=== PATIENT | female | born 1980 | race Caucasian/White ===

== ENCOUNTER 2020-08-16 10:31 | Outpatient (CLI) | payer OTHER, SELFPAY ==
--- NOTE | ~2020-08-16 | MR_ITS ---
EXAMINATION: MR knee LT wo con DATE: 08/16/2020 11:25 INDICATION: Left knee arthritis presenting with 3 weeks of generalized left knee pain. TECHNIQUE: Magnetic resonance imaging (MRI) of the left knee was performed without intravenous contra st. Sequences included coronal PD-weighted FSE, coronal PD-weighted FS FSE, sagittal T2-weighted FSE , sagittal PD-weighted FS FSE and axial PD weighted fat saturated FSE. COMPARISON: None. FINDINGS: Medial compartment: Medial meniscus is normal. Partial-thickness cartilage loss with chondral surface regularity along th e anterior weightbearing medial femoral condyle and anterior half of the medial tibial plateau. No de generative subarticular changes. Lateral compartment: Lateral meniscus is normal. Articular cartilage is normal. Patellofemoral compartment: Partial-thickness cartilage loss and chondral surface regularity along the caudal half of the patella r apical ridge and medial facet. Deep chondral fissuring with underlying subarticular edema at the tr ochlear groove and inferomedial aspect of the medial trochlea. Ligaments and tendons: Anterior and posterior cruciate ligaments are normal. The medial collateral ligament and fibular jaymie ateral ligament complex are normal. The extensor mechanism is normal. The visualized medial and later al hamstring tendons as well as the iliotibial band are normal. Fluid: There is edema and/or synovitis at the margins of the suprapatellar pouch and along the posterior mar gin of Hoffa's fat pad with physiologic amount of fluid in the joint space. No loose osteochondral kristina dies identified. Large multilobulated Malin's cyst which extends greater than 12 cm craniocaudally be tween the semimembranosus and medial head of the gastrocnemius and 3.7 x 1.6 cm in maximal orthogonal dimensions. There is likely rupture of the Malin's cyst with small amount of nonloculated fluid trac mayela into the soft tissues surrounding the inferior aspect of the cyst. Osseous/other: Aside from the subarticular edema at the trochlear groove and medial trochlea there is normal marrow signal. No fracture or pathologic marrow replacing process. IMPRESSION: 1. 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 2. Likely partially ruptured large multilobulated Malin's cyst at the posterior medial aspect of the knee. Reviewed, dictated and finalized at location B. IMPRESSION: 1. Mild tricompartmental osteoarthritis with high-grade trochlear chondromalaci a and with regions of moderate grade chondromalacia at the patella and in the m edial and lateral compartments. 2. Likely partially ruptured large multilobulated Malin's cyst at the posterior medial aspect of the knee.
== END 2020-08-16 10:32 | disposition home or self-care (01) ==
PROVIDERS: Referring Provider Orthopaedic Surgery
DX: M17.10 Unilateral primary osteoarthritis, unspecified knee (principal); M22.42 Chondromalacia patellae, left knee
CPT/HCPCS: 73721

== ENCOUNTER 2021-03-18 17:04 | Emergency (ER) | payer OTHER, SELFPAY ==
--- NOTE | ~2021-03-18 | CT_ITS ---
EXAMINATION: CT abdomen pelvis w con EXAM DATE: 03/18/2021 20:14 INDICATION: Right lower quadrant pain. TECHNIQUE: Spiral CT of the abdomen and pelvis was performed following intravenous injection of 100 m L Omnipaque 350. Axial, coronal and sagittal images of the abdomen and pelvis were reviewed. The do se-length product (DLP) for this examination was 485.51 mGy-cm. The exposure was tailored according to patient size (auto mA exposure control), and iterative reconstruction (ASIR) was used as additiona l dose reduction technique. There is no prior study for comparison. FINDINGS: The liver, spleen, adrenal glands and pancreas are unremarkable. Gallbladder is unremarkab le. No biliary obstruction. Portal and splenic veins are patent. Kidneys enhance symmetrically. T here is no hydronephrosis. The uterus is anteverted and morphologically normal. The bladder is un remarkable. There is no retroperitoneal or pelvic lymphadenopathy. The appendix is not positively visualized. There is no pericecal inflammatory change to suggest appe ndicitis. The stomach and small bowel are unremarkable. There is expected amount of colonic stool. No free intraperitoneal gas. The heart is normal in size. There are no pericardial or pleural e ffusions. The lung bases are unremarkable. Mild thoracolumbar levoscoliosis. There are no osteoblas tic or osteolytic lesions identified. IMPRESSION: 1. No acute intra-abdominal findings. Reviewed, dictated and finalized at location A.
[2021-03-18 17:10] VITALS: BP 110/72; PULSE 80; RESP 18; TEMP 36.3; O2SAT 100
[2021-03-18 17:22] LABS: Basophils Absolute Auto 0.1 K/mm3 (0.0-0.1); Basophils Percent Auto 0.7 % (0.2-1.2); Eosinophils Absolute Auto 0.4 K/mm3 (0-0.3); Eosinophils Percent Auto 3.2 % (0-4.4); Hematocrit 47.2 % (37.0-47.0); Hemoglobin 14.9 g/dL (12.0-15.0); Immature Granulocyte Absolute 0.05 K/mm3 (0.00-0.031); Immature Granulocyte Percent A 0.5 % (0-0.5); Lymphocytes Percent Auto 22.6 % (18.3-44.2); Mean Corpuscular HGB Conc 31.6 g/dl (32-36); Mean Corpuscular Hemoglobin 28.2 pg (26-34); Mean Corpuscular Volume 89.4 fl (80-100); Mean Platelet Volume 10.1 fl (7.4-10.4); Monocytes Absolute Auto 0.7 K/mm3 (0.1-0.6); Monocytes Percent Auto 6.3 % (2.6-8.5); Neutrophils Absolute Auto 7.4 K/mm3 (1.3-6.7); Neutrophils Percent Auto 66.7 % (45.5-73.1); Platelet Count Result 444 k/mm3 (150-375); Red Blood Count 5.28 M/mm3 (4.2-5.4); Red Cell Distribution Width 12.8 % (11.5-14.5)
[2021-03-18 17:28] LABS: Add Urine Microscopic? NO; Appearance Urine Clear (Clear); Bilirubin Urine Negative (Negative); Blood Urine Negative (Negative); Color Urine Yellow (Yellow); Glucose Urine UA Negative (Negative); Ketones Urine Negative (Negative); Leukocyte Esterase Ur Negative LEU/UL (Negative); Nitrate Urine Negative (Negative); Protein Urine Negative (Negative); Specific Grav Ur 1.018 (1.001-1.035); Urobilinogen Urine Negative mg/dL (<2.0)
[2021-03-18 17:33] LABS: Alanine Aminotransferase 19 U/L (4-35); Albumin Level 4.5 g/dL (3.5-5.1); Alkaline Phosphatase 63 U/L (38-126); Anion Gap 4 mmol/L (8-16); Aspartate Amino Transferase 36 U/L (14-36); Bilirubin,Total 0.3 mg/dL (0.2-1.3); Blood Urea Nitrogen 21 mg/dL (7-17); Calcium 9.8 mg/dL (8.4-10.2); Carbon Dioxide 34 mmol/L (22-30); Chloride 101 mmol/L (98-107); Estimated CRCL calculation 77 ml/min; Estimated Glomerular Filt Rate > 60; Glucose 105 mg/dL (65-105); Lipase 32 U/L (23-300); Potassium 4.5 mmol/L (3.4-5.0); Sodium 139 mmol/L (137-145)
[2021-03-18] MEDS: ONDANSETRON INJ 4 MG/2 ML VIAL IV PUSH (19:40)
[2021-03-18] MEDS: SODIUM CHLORIDE 0.9% IV 1,000 ML 999 ML IV CONT (19:40)
[2021-03-18 19:44] VITALS: BP 116/65; PULSE 79; RESP 14; O2SAT 99
--- NOTE | 2021-03-18 19:44 | ED.GENADULT ---
HPI - General Adult General Chief complaint: Abdominal Pain Stated complaint: ABD PAIN X1 HOUR Time Seen by Provider: 03/18/21 19:00 History of Present Illness HPI narrative: Patient 40-year-old female presents the emergency department with chief complaint of abdominal pain. Patient reports that the pain began just after she had had a bowel movement reports the pain is more in the periumbilical area and radiates to her back. Patient reports that no prior history of surgeries to the abdomen. Patient denies fever denies chills reports that her bowel movement was normal denies dysuria versus her last period was in the last month that was normal Related Data Home Medications Medication Instructions Recorded Confirmed meloxicam 7.5 mg tablet 7.5 mg PO DAILY 09/09/20 09/09/20 nortriptyline 10 mg capsule 10 mg PO DAILY 09/09/20 09/09/20 Allergies Allergy/AdvReac Type Severity Reaction Status Date / Time brompheniramine Allergy Unknown RASH Verified 09/09/20 15:39 dextromethorphan Allergy Unknown RASH Verified 09/09/20 15:39 [email or web address] Allergy Unknown RASH Verified 09/09/20 15:39 phenylephrine Allergy Unknown RASH Verified 09/09/20 15:39 Review of Systems Review of Systems: Narrative: A 10 system review of systems was completed on the patient and is negative except for what is stated in the HPI. Nursing and ancillary documentation was reviewed. PMFSH Past Medical History Medical History Anxiety Depression Elevated lipids Migraines Vaginal delivery x 2 Vertigo Surgical History Surgical History History of hernia surgery History of left oophorectomy History of tubal ligation Family History Family History Grandparent Carcinoma of colon Acute myocardial infarction Breast cancer Social History Social History Smoking status: Former smoker Exam Narrative: Exam Narrative: GENERAL: Well-appearing, well-nourished, and in no acute distress. HEAD: Normocephalic, atraumatic. EYES: PERRLA and EOMI. ENT: Nares clear, no rhinorrhea or epistaxis. Mucous membranes moist. NECK: Supple. CHEST: Clear to auscultation. No respiratory distress. HEART: Regular rate and rhythm. No murmur heard. Normal peripheral pulses. ABDOMEN: Soft, nontender, nondistended, normal active bowel sounds. EXTREMITIES: Normal range of motion. No edema. SKIN: Warm, dry, no rash. NEURO: No focal deficits. Alert and oriented x3. PSYCH: Normal mood and affect. Course Course Emergency Course: CT scan of the abdomen pelvis showed no evidence of acute abnormality Vital Signs Vital signs: Vital Signs Temperature 36.3 C L 03/18/21 17:10 Pulse Rate 80 03/18/21 17:10 Respiratory Rate 18 03/18/21 17:10 Blood Pressure 110/72 03/18/21 17:10 Pulse Oximetry 100 03/18/21 17:10 Temperature 36.3 C L 03/18/21 17:10 Pulse Rate 79 03/18/21 19:44 Respiratory Rate 14 03/18/21 19:44 Blood Pressure 116/65 03/18/21 19:44 Pulse Oximetry 99 03/18/21 19:44 Medical Decision Making Vital Signs Vital Signs: Vital Signs Temperature 36.3 C L 03/18/21 17:10 Pulse Rate 80 03/18/21 17:10 Respiratory Rate 18 03/18/21 17:10 Blood Pressure 110/72 03/18/21 17:10 Pulse Oximetry 100 03/18/21 17:10 Temperature 36.3 C L 03/18/21 17:10 Pulse Rate 79 03/18/21 19:44 Respiratory Rate 14 03/18/21 19:44 Blood Pressure 116/65 03/18/21 19:44 Pulse Oximetry 99 03/18/21 19:44 Lab Data Result diagrams: 03/18/21 17:14 03/18/21 17:14 Labs: Lab Results 03/18/21 03/18/21 03/18/21 Range/Units 17:14 17:14 17:20 WBC 11.0 H (4.5-10.0) K/mm3 RBC 5.28 (4.2-5.4) M/mm3 Hgb 14.9 (12.0-15.0) g/dL Hct 47.2 H (37.0-47.0
== END 2021-03-18 21:09 | disposition home or self-care (01) ==
PROVIDERS: Emergency Medicine; Emergency Provider Emergency Medicine; PCP Nurse Practitioner
DX: R10.84 Generalized abdominal pain (principal); F41.9 Anxiety disorder, unspecified; F32.9 Major depressive disorder, single episode, unspecified; Z87.891 Personal history of nicotine dependence
CPT/HCPCS: 36415; 74177; 80053; 81003; 81025; 83690; 85025; 96361; 96374; 99284; J2405; J7030; Q9967

== ENCOUNTER → 2023-01-25 09:54 | Outpatient (CLI) | payer OTHER, SELFPAY ==
--- NOTE | ~2023-01-25 | US_ITS ---
Pelvic ultrasound. Clinical History: Ovarian cyst Technique: Realtime transabdominal and transvaginal scanning of the pelvis was performed. Color flow Doppler and Doppler spectral analysis were performed. Findings: The uterus is anteverted. The endometrial stripe has a thickness of 10 mm. No focal mass i s identified. The right ovary measures 2.5 x 3.3 x 2.9 cm. No significant right ovarian or adnexal mass is seen. The left ovary measures 4.3 x 2.8 x 5.2 cm. Left ovarian cyst measures 4.0 cm in maximum diameter.. Vascular flow present in both ovaries on Doppler spectral analysis. There is no evidence of free fluid in the cul de sac. Impression: 4 cm simple left ovarian cyst. Reviewed, dictated and finalized at [facility]. Impression: 4 cm simple left ovarian cyst.
== END ==
PROVIDERS: PCP Registered Nurse; Visit Provider Registered Nurse
DX: N83.202 Unspecified ovarian cyst, left side (principal)
CPT/HCPCS: 76830; 76856

== ENCOUNTER → 2023-04-04 10:27 | Outpatient (CLI) | payer OTHER, SELFPAY ==
--- NOTE | ~2023-04-04 | MM_ITS ---
EXAMINATION: MM screening kelley BI w jami HISTORY: Screening mammogram TECHNIQUE: Craniocaudal and mediolateral oblique 3-D tomosynthesis images were obtained and synthetic 2-D images were generated. CAD analysis was submitted and interpreted. COMPARISON: No prior mammogram is available for comparison at this institution. BREAST PARENCHYMAL COMPOSITION: There are scattered areas of fibroglandular density. FINDINGS: There is no evidence of suspicious mass, calcification, or architectural distortion to sugg est malignancy in either breast. There has been no suspicious interval change. IMPRESSION: 1. No mammographic evidence of malignancy. 2. Recommend routine screening mammography in one year. BI-RADS Category 1: Negative Reviewed, dictated and finalized at location A.
== END ==
PROVIDERS: PCP Internal Medicine; Visit Provider Registered Nurse
DX: Z12.31 Encounter for screening mammogram for malignant neoplasm of breast (principal)
CPT/HCPCS: 77063; 77067

== ENCOUNTER 2023-06-29 08:58 | Outpatient (CLI) | payer OTHER, SELFPAY ==
--- NOTE | ~2023-06-29 | US_ITS ---
EXAMINATION: US pelvic complete w TV DATE: 06/29/2023 09:28 INDICATION: Follow-up left ovarian cyst Comparison:Ultrasound dated 01/25/2023 TECHNIQUE: Multiple transabdominal and endovaginal sonographic images of the pelvis performed. FINDINGS: The uterus measures 9.6 x 4.7 x 4.4 cm. There is a small uterine fibroid measuring 9 mm. Th e endometrial complex measures 9 mm. The right ovary measures 3.3 x 2.6 x 2.5 cm and the left ovary measures 2.3 x 1.7 x 1.2 cm. There is a left ovarian cyst measuring 2.1 x 1.3 x 8 cm compared with 3.7 x 2.4 x 4 cm from prior study. There are small follicles in each ovary. Normal doppler signal in both ovaries. There is no free fluid in the pelvis. There are no abnormal masses seen on either side. IMPRESSION: 1. Significantly decreased size of left ovarian cyst measuring 2.1 cm on current study. Reviewed, dictated and finalized at location L. IMPRESSION: 1. Significantly decreased size of left ovarian cyst measuring 2.1 cm on curren t study.
== END 2023-06-29 08:59 | disposition home or self-care (01) ==
PROVIDERS: PCP Internal Medicine; Visit Provider Registered Nurse
DX: N83.202 Unspecified ovarian cyst, left side (principal)
CPT/HCPCS: 76830; 76856

== ENCOUNTER 2023-07-19 09:10 | Outpatient (CLI) | payer OTHER, SELFPAY ==
[2023-07-25 08:53] LABS: Testosterone Free 1.5 pg/mL (0.1-6.4); Testosterone Total 12 ng/dL (2-45)
== END 2023-07-19 09:11 | disposition home or self-care (01) ==
PROVIDERS: PCP Internal Medicine; Visit Provider Registered Nurse
DX: R68.82 Decreased libido (principal)
CPT/HCPCS: 36415; 84402; 84403

== ENCOUNTER 2024-05-13 11:57 | Emergency (ER) | payer SELFPAY ==
--- NOTE | ~2024-05-13 | CT_ITS ---
CT abdomen pelvis w con Ordering provider: Montana Harley MD History: 43 years Female with . Right flank, right lower quadrant pain . Comparison: None. Technique: CT abdomen and pelvis with IV and without oral contrast. Automated exposure control and it erative reconstruction technique were employed. The dose-length product was 560.29 mGy-cm. 100 mL of Omnipaque 350 was given IV. Findings: VISUALIZED LOWER CHEST: Dependent atelectatic changes. UPPER ABDOMINAL ORGANS: Liver: Normal. Gallbladder: Normal. Spleen: Normal. Stomach/duodenum: Normal. Pancreas: Normal. Adrenals: Normal. Kidneys: Normal. PELVIC ORGANS: The bladder is normal. Uterus: Hypodensity in the anterior wall with fluid and soft t issue density in the endometrial cavity area measuring 1.6 cm. Evaluation for advised.. Rig ht ovarian cyst measuring 3.3 x 4.2 cm which may be a corpus luteum. BOWEL AND MESENTERY: Colon: No evidence of diverticulitis. Fecal material is loaded in the colon no evidence of appendicit is. Small Bowel: Normal. No obstruction. Peritoneum/mesentery: No free air or free fluid. No mesenteric lymphadenopathy. RETROPERITONEUM: Normal aorta. No retroperitoneal lymphadenopathy. MUSCULOSKELETAL: Superficial soft tissues: The superficial soft tissues are normal. Bones: Normal spine. IMPRESSION: 1. Hypodensity in the anterior wall with fluid and soft tissue density in the endometrial cavity are a measuring 1.6 cm. Evaluation for advised.. 2. Right ovarian cyst measuring 3.3 x 4.2 cm which may be a corpus luteum. 3. No evidence of appendicitis, diverticulitis or intestinal obstruction. Reviewed, dictated and finalized at location A. IMPRESSION: 1. Hypodensity in the anterior wall with fluid and soft tissue density in the endometrial cavity area measuring 1.6 cm. Evaluation for advised.. 2. Right ovarian cyst measuring 3.3 x 4.2 cm which may be a corpus luteum. 3. No evidence of appendicitis, diverticulitis or intestinal obstruction.
[2024-05-13 12:03] VITALS: BP 114/59; PULSE 92; RESP 16; TEMP 36.4; O2SAT 100
[2024-05-13 13:04] VITALS: BP 121/64; PULSE 89; RESP 17; O2SAT 100
[2024-05-13 13:18] LABS: Appearance Urine Clear (Clear); Bilirubin Urine Negative (Negative); Blood Urine Negative (Negative); Color Urine Yellow (Yellow); Glucose Urine UA Negative (Negative); Ketones Urine Negative (Negative); Leukocyte Esterase Ur Negative LEU/UL (Negative); Nitrate Urine Negative (Negative); Protein Urine Negative (Negative); Specific Grav Ur 1.016 (1.001-1.035); Urobilinogen Urine 0.2 mg/dL (<2.0); pH Urine 5.5 (5.0-9.0)
[2024-05-13 13:24] LABS: Add Urine Microscopic? NO
--- NOTE | 2024-05-13 14:09 | ED.ABDPAIN ---
HPI - Abdominal Pain General Chief Complaint: Abdominal Pain Stated Complaint: R flank pain Time Seen by Provider: 05/13/24 13:47 Source: patient Mode of arrival: EMS Limitations: no limitations History of Present Illness HPI narrative: 43 YEARS OLD WHITE FEMALE CAME TO THE EMERGENCY ROOM BY AMBULANCE BECAUSE OF PAIN ON THE RIGHT FLANK AREA GOING ALL WAY UP TO THE RIGHT BACK ASSOCIATED WITH NAUSEA. SHE DENIES ANY FEVER, CHILLS, VOMITING, VAGINAL BLEEDING OR DISCHARGE OR URINARY SYMPTOMS. PATIENT DENIED ANY HISTORY OF ABDOMINAL SURGERY. HISTORY OF ARTHRITIS, MIGRAINE HEADACHE, ANXIETY AND DEPRESSION. Related Data Allergies Allergy/AdvReac Type Severity Reaction Status Date / Time brompheniramine Allergy Rash Verified 05/13/24 14:33 [From Dimetapp (brompheniramine-PPA)] [email or web address] [From Robitussin] Allergy Rash Verified 05/13/24 14:33 phenylpropanolamine Allergy Rash Verified 05/13/24 14:33 [From Dimetapp (brompheniramine-PPA)] Review of Systems Review of Systems: All systems reviewed & are unremarkable except as noted in HPI and below Exam Narrative: GENERAL APPEARANCE: WELL-DEVELOPED, WELL-NOURISHED SKIN: NORMAL COLOR HEAD: NORMOCEPHALIC, NONTRAUMATIC EYES: CLEAR CONJUNCTIVA ENT: OROPHARYNX NORMAL, EARS NORMAL, NOSE NORMAL NECK: SUPPLE, NONTENDER CHEST AND RESPIRATORY: AIRWAY PATENT, NO RESPIRATORY DISTRESS, NO ACCESSORY MUSCLE USE HEART: REGULAR RATE/RHYTHM ABDOMEN: SOFT, MILD TENDERNESS RIGHT FLANK , NO GUARDING OR REBOUND,, NO ORGANOMEGALY, QUIET BOWEL SOUNDS VASCULAR: NORMAL PERIPHERAL PULSES, NORMAL CAPILLARY REFILL. MUSCULOSKELETAL: NORMAL RANGE OF MOTION, NONTENDER BACK NEUROLOGIC: ALERT AND ORIENTED ?3, PATTERNMAKER BENCH IS NORMAL TESTED, NO GROSS MOTOR DEFICIT Course Vital Signs Vital signs: Vital Signs Temperature 36.4 C 05/13/24 12:03 Pulse Rate 92 05/13/24 12:03 Respiratory Rate 16 05/13/24 12:03 Blood Pressure 114/59 L 05/13/24 12:03 Pulse Oximetry 100 05/13/24 12:03 Temperature 36.8 C 05/13/24 16:25 Pulse Rate 86 05/13/24 16:25 Respiratory Rate 14 05/13/24 16:25 Blood Pressure 116/67 05/13/24 16:25 Pulse Oximetry 99 05/13/24 16:25 Oxygen Delivery Room Air 05/13/24 13:04 MDM - Abdominal Pain MDM Narrative Medical decision making narrative: Differential diagnosis of right flank pain include musculoskeletal, kidney infection, kidney stone, constipation, colitis, diverticulitis Laboratory studies obtained on the patient showed WBC of 10.1 platelet of 394, urinalysis within normal limit, CT abdomen and pelvis showed nonspecific findings including a right ovarian cyst. Urine cyst and serum test came back negative. Patient feeling much better, asymptomatic at this time. The planned discharge patient with diagnosis of flank pain, to follow-up with OBGYN for intraultrin abnormality. Patient was advised to take Tylenol, ibuprofen as needed and follow-up with OBGYN within 5 days Differential Diagnosis Differential diagnosis: Likely other (As above) Medical Records Attestation: I reviewed the patient's medical records. Lab Data Attestation: I reviewed the patient's lab results. 05/13/24 14:31 05/13/24 14:31 Labs: Lab Results 05/13/24 05/13/24 Range/Units 13:10 14:31 WBC 10.1 H (4.5-10.0) K/mm3 RBC 4.45 (4.2-5.4) M/mm3 Hgb 12.9 (12.0-15.0) g/dL Hct 39.4 (37.0-47.0) % MCV 88.5 (80-100) fl MCH 29.0 (26-34) pg MCHC 32.7 (32-36) g/dl RDW 12.4 (11.5-14.5) % Plt Count 394 H (150-375) k/mm3 MPV 9.8 (7.4-10.4) fl Immature Gran % (Auto) 0.2 (0-0.5) % Neut % (Auto) 8
[2024-05-13] MEDS: Please add drug allergy info to patient profile. 1 EACH XX (14:20)
[2024-05-13] MEDS: SODIUM CHLORIDE 0.9% IV 1,000 ML 999 ML IV CONT (14:26)
[2024-05-13 14:38] LABS: Basophils Absolute Auto 0.1 K/mm3 (0.0-0.1); Basophils Percent Auto 0.7 % (0.2-1.2); Eosinophils Absolute Auto 0.1 K/mm3 (0-0.3); Eosinophils Percent Auto 0.9 % (0-4.4); Hematocrit 39.4 % (37.0-47.0); Hemoglobin 12.9 g/dL (12.0-15.0); Immature Granulocyte Absolute 0.02 K/mm3 (0.00-0.031); Immature Granulocyte Percent A 0.2 % (0-0.5); Lymphocytes Absolute Auto 1.32 K/mm3 (0.9-3.2); Mean Corpuscular HGB Conc 32.7 g/dl (32-36); Mean Corpuscular Volume 88.5 fl (80-100); Mean Platelet Volume 9.8 fl (7.4-10.4); Monocytes Absolute Auto 0.4 K/mm3 (0.1-0.6); Neutrophils Absolute Auto 8.2 K/mm3 (1.3-6.7); Neutrophils Percent Auto 81.2 % (45.5-73.1); Platelet Count Result 394 k/mm3 (150-375); Red Blood Count 4.45 M/mm3 (4.2-5.4); Red Cell Distribution Width 12.4 % (11.5-14.5); White Blood Count 10.1 K/mm3 (4.5-10.0)
[2024-05-13 14:57] LABS: Alanine Aminotransferase 33 U/L (6-35); Albumin Level 3.8 g/dL (3.5-5.1); Alkaline Phosphatase 56 U/L (38-126); Anion Gap 7 mmol/L (4-12); Aspartate Amino Transferase 31 U/L (14-36); Bilirubin,Total 0.8 mg/dL (0.2-1.3); Blood Urea Nitrogen 15 mg/dL (7-17); Calcium 8.8 mg/dL (8.4-10.2); Carbon Dioxide 26 mmol/L (22-30); Chloride 105 mmol/L (98-107); Estimated CRCL calculation 83 ml/min; Estimated Glomerular Filt Rate > 60; Glucose 92 mg/dL (65-110); Lipase 25 U/L (23-300); Potassium 3.8 mmol/L (3.4-5.0); Sodium 138 mmol/L (137-145)
[2024-05-13 16:25] VITALS: BP 116/67; PULSE 86; RESP 14; TEMP 36.8; O2SAT 99
[2024-05-13 17:33] LABS: Beta HCG Quantitative < 2.39 mIU/ML
== END 2024-05-13 17:54 | disposition home or self-care (01) ==
PROVIDERS: Emergency Provider Emergency Medicine; PCP Internal Medicine
DX: R10.9 Unspecified abdominal pain (principal); N83.201 Unspecified ovarian cyst, right side
CPT/HCPCS: 36415; 74177; 80053; 81003; 81025; 83690; 84702; 85025; 96360; 99284; J7030; Q9967

== ENCOUNTER 2024-06-06 15:34 | Outpatient (CLI) | payer OTHER, SELFPAY ==
--- NOTE | ~2024-06-06 | US_ITS ---
EXAMINATION: US pelvic complete w TV DATE: 06/06/2024 16:48 INDICATION: Ovarian cyst and uterine cyst. TECHNIQUE: Multiple transabdominal and endovaginal sonographic images of the pelvis were obtained. COMPARISON: Ultrasound dated 06/29/[address] dated 05/13/2024. FINDINGS: The uterus measures 10.4 x 5.3 x 6.3 cm. The endometrial complex measures 9 mm in thickness. Within the endometrial complex is a 1.7 x 1.6 x 0.9 cm mass which appears evident is enhancing mass surround ed by the lower attenuation endometrial complex. There is a 1.3 x 1.2 x 1.1 cm mass with shadowing at the anterior uterine wall which appears relatively hypoenhancing on the prior CT likely representing a uterine fibroid. This is increased in size from 9 mm in maximal diameter at the time of the prior ultrasound. The right ovary measures 4.7 x 4.4 x 3.4 cm. 3.4 cm anechoic right ovarian cyst. Arterial and venous waveforms identified in the right ovary on color Doppler. The left ovary is not visualize d. There is no free fluid in the pelvis. IMPRESSION: 1. Interval increase in size of a now 1.3 cm likely fibroid in the anterior uterine wall. 2. 1.7 x 1.6 x 0.9 cm mass within the endometrial complex which could represent an endometrial polyp were submucosal fibroid. Consider hysteroscopy for further evaluation. 3. Simple appearing 3.4 cm right ovarian cyst. Reviewed, dictated and finalized at location A. IMPRESSION: 1. Interval increase in size of a now 1.3 cm likely fibroid in the anterior jalil rine wall. 2. 1.7 x 1.6 x 0.9 cm mass within the endometrial complex which could represent an endometrial polyp were submucosal fibroid. Consider hysteroscopy for furthe r evaluation. 3. Simple appearing 3.4 cm right ovarian cyst.
== END 2024-06-06 15:35 | disposition home or self-care (01) ==
LOC: ANHIMG 15:34
PROVIDERS: PCP Internal Medicine; Visit Provider Nurse Practitioner Family
DX: N83.201 Unspecified ovarian cyst, right side (principal); N94.9 Unspecified condition associated with female genital organs and menstrual cycle
CPT/HCPCS: 76830; 76856